=== PATIENT | female | born 1965 | race Caucasian/White ===

== ENCOUNTER 2024-03-04 15:59 | Observation (INO) ==
[2024-03-04 18:41] LABS: RBC Parasite Smear No Parasites Seen (No Parasite)
[2024-03-04 22:53] LABS: Hematocrit 39.7 % (35-45); Hemoglobin 13.8 g/dL (11.5-14.3); Mean Corpuscular Hemoglobin 31.4 pg (27-33); Mean Corpuscular Hgb Conc 34.7 g/dL (31-36); Mean Corpuscular Volume 90.5 fL (80-97); Mean Platelet Volume 9.1 fL (7.5-11.2); Platelet Count 119 10^3/uL (150-450); Red Blood Count 4.39 10^6/uL (3.63-4.92); Red Cell Distribution Width 13.6 % (12-17); White Blood Count 2.8 10^3/uL (3.8-11.8)
[2024-03-04 23:05] LABS: Activated Partial Thrombo Time 28.6 seconds (26.0-38.0); INR 1.09 (0.83-1.13)
[2024-03-04 23:10] LABS: Urine Appearance Turbid; Urine Bilirubin Negative (Negative); Urine Blood 3+ (Negative); Urine Color Yellow; Urine Glucose Negative (Negative); Urine Ketones 1+ (Negative); Urine Nitrite Negative (Negative); Urine Protein Trace (Negative); Urine Specific Gravity 1.022 (1.002-1.030); Urine Urobilinogen Negative (Negative)
[2024-03-04 23:30] LABS: Albumin 3.8 g/dL (3.2-5.2); Albumin/Globulin Ratio 1.4 (1-3); C Reactive Protein 21.7 mg/L (<8.01); Calcium 8.7 mg/dL (8.6-10.3); Creatinine, Serum 0.55 mg/dL (0.51-0.95); Globulin 2.8 g/dL (2-4); Potassium 4.2 mmol/L (3.5-5.0); Total Bilirubin 0.5 mg/dL (0.2-1.0); Total Protein 6.6 g/dL (6.4-8.9); eGFR CKD-EPI 105.5 (>60)
[2024-03-04 23:34] LABS: ABS Lymphocytes 1.6 10^3/uL (1.0-4.8); ABS Monocytes 0.3 10^3/uL (0.0-0.9); ABS Neutrophils 0.8 10^3/uL (1.5-7.6); ABS Nucleated RBC 0.01 10^3/ul; Eosinophil % 1.3 %; Lymphocyte % 57.3 %; Nucleated Red Blood Cells % 0.3 %/100WBC (0.0-0.8); RBC Morphology Normal (Normal)
[2024-03-04 23:53] LABS: Urine Bacteria Absent /HPF (Absent); Urine Red Blood Cell 3+(>10/hpf) /HPF (0-Trace); Urine Squamous Epithelial Cell Present /HPF (Absent); Urine White Blood Cell 3+(>20/hpf) /HPF (0-Trace)
[2024-03-05] MEDS: Cefepime 1 GM in Dextrose 1 GM/50 ML BAG IV ONE (01:18)
[2024-03-05 02:00] LABS: Albumin 3.5 g/dL (3.2-5.2); Albumin/Globulin Ratio 1.4 (1-3); Calcium 8.2 mg/dL (8.6-10.3); Creatinine, Serum 0.49 mg/dL (0.51-0.95); Globulin 2.5 g/dL (2-4); Potassium 3.8 mmol/L (3.5-5.0); Total Bilirubin 0.5 mg/dL (0.2-1.0); eGFR CKD-EPI 108.5 (>60)
[2024-03-05 03:00] LABS: HIV 4th Generation Nonreactive (Nonreactive)
[2024-03-05 06:48] LABS: Hematocrit 38.2 % (35-45); Hemoglobin 13.2 g/dL (11.5-14.3); Mean Corpuscular Hemoglobin 31.4 pg (27-33); Mean Corpuscular Hgb Conc 34.6 g/dL (31-36); Mean Corpuscular Volume 90.7 fL (80-97); Mean Platelet Volume 8.7 fL (7.5-11.2); Platelet Count 109 10^3/uL (150-450); Red Blood Count 4.22 10^6/uL (3.63-4.92); Red Cell Distribution Width 13.5 % (12-17); White Blood Count 3.2 10^3/uL (3.8-11.8)
[2024-03-05 08:30] LABS: ABS Lymphocytes 1.7 10^3/uL (1.0-4.8); ABS Monocytes 0.5 10^3/uL (0.0-0.9); Eosinophil % 1.4 %; Lymphocyte % 52.8 %; Nucleated Red Blood Cells % 0.1 %/100WBC (0.0-0.8)
[2024-03-05 08:31] LABS: RBC Morphology Normal (Normal)
[2024-03-05] MEDS: Lactated Ringers 1000 ml BAG 1,000 ML IV SCH (10:21)
[2024-03-05] MEDS: Cefepime 1 GM in Dextrose 1 GM/50 ML BAG IV SCH (12:43)
[2024-03-05] MEDS ORDERED: Cefepime 1 GM in Dextrose 1 GM/50 ML BAG IV SCH (13:00)
[2024-03-06 07:10] LABS: Hemoglobin 12.7 g/dL (11.5-14.3); Mean Corpuscular Hemoglobin 31.6 pg (27-33); Mean Corpuscular Hgb Conc 35.2 g/dL (31-36); Mean Corpuscular Volume 89.8 fL (80-97); Mean Platelet Volume 8.9 fL (7.5-11.2); Platelet Count 117 10^3/uL (150-450); Red Blood Count 4.01 10^6/uL (3.63-4.92); Red Cell Distribution Width 13.3 % (12-17); White Blood Count 3.6 10^3/uL (3.8-11.8)
[2024-03-06 07:31] LABS: Calcium 8.5 mg/dL (8.6-10.3); Creatinine, Serum 0.52 mg/dL (0.51-0.95); Magnesium 1.8 mg/dL (1.9-2.7); Potassium 3.9 mmol/L (3.5-5.0)
[2024-03-06 07:50] LABS: ABS Eosinophils 0.1 10^3/uL (0.0-0.5); ABS Monocytes 0.4 10^3/uL (0.0-0.9); ABS Neutrophils 1.1 10^3/uL (1.5-7.6); ABS Nucleated RBC 0.01 10^3/ul; Eosinophil % 1.5 %; Lymphocyte % 56.6 %; Nucleated Red Blood Cells % 0.2 %/100WBC (0.0-0.8)
[2024-03-06] MEDS: Magnesium Sulf 4 GM/100 ML IV 4,000 MG/100 ML BAG IVPB ONE (09:02)
[2024-03-06 09:52] VITALS: BP 120/77
[2024-03-06] MEDS: Butalb/Acetamin/Caff TAB 325-50-40MG PO ONE (13:54)
[2024-03-06 16:10] LABS: Cytomegalovirus IgG Antibody Negative (Negative); EBV, IgG Ab to Early Antigen Equivocal (Negative)
[2024-03-07 23:18] LABS: Anaplasma phagocytophilum Negative (Negative); B. miyamotoi PCR, B Positive (Negative); Babesia divergens/MO-1 Negative (Negative); Babesia ducani Negative (Negative); Ehrlichia chaffeensis Negative (Negative); Ehrlichia ewingii/canis Negative (Negative); Ehrlichia muris eauclairensis Negative (Negative)
== END 2024-03-06 14:08 | disposition home or self-care (01) ==
LOC: ED 15:59 → EDHOLD 15:59 → SUATTDRO 03-05 00:25 → SSU 03-05 09:20
PROVIDERS: ADMIT Internal Medicine; ATTEND Student in an Organized Health Care Education/Training Program